=== PATIENT | female | born 1960 | race Caucasian/White ===

== ENCOUNTER → 2021-01-26 | Outpatient (CLI) | payer OTHER ==
[~2021-01-26] MED LIST: CATAPRES-TTS 10.1 MG TD; HYDROCODONE-AP1 EAC6 PO; UNICOMPLEX M TA1 TA1 PO; ZOFRAN ODT4 MG DISSOLVE
== END ==
LOC: MRI 07:46
PROVIDERS: ATTEND Orthopaedic Surgery Foot and Ankle Surgery
DX: T84.84XD Pain due to internal orthopedic prosthetic devices, implants and grafts, subsequent encounter (principal); M84.374D Stress fracture, right foot, subsequent encounter for fracture with routine healing; M19.071 Primary osteoarthritis, right ankle and foot